=== PATIENT | male | born 1960 | race Hispanic/Latino ===

== ENCOUNTER → 2023-05-04 08:03 | Outpatient (CLI) | payer MEDICARE, OTHER, SELFPAY ==
[2023-05-04 08:57] LABS: Cholesterol 126 mg/dL (140-199); HDL Cholesterol 38 mg/dL (40-60); LDL Cholesterol Calculated 67 mg/dL (<100); Triglycerides 104 mg/dL (35-150)
[2023-05-04 09:32] LABS: Creatinine Urine Random 212.2 mg/dL
[2023-05-04 09:39] LABS: Microalbumi Creatinin Ratio Ur 4.7 ug/mg CR (<30)
[2023-05-04 09:52] LABS: Hemoglobin A1C% w Est Avg Glu 8.3 % (4.0-6.0)
== END ==
PROVIDERS: PCP Student in an Organized Health Care Education/Training Program; Referring Provider Student in an Organized Health Care Education/Training Program; Visit Provider Student in an Organized Health Care Education/Training Program
DX: E11.9 Type 2 diabetes mellitus without complications (principal)
CPT/HCPCS: 36415; 80061; 82043; 82570; 83036

== ENCOUNTER → 2023-06-06 10:47 | Outpatient (CLI) | payer MEDICARE, OTHER, SELFPAY ==
--- NOTE | 2023-06-06 10:49 | DI.CT.S_ITS ---
PROCEDURE: CT LUNG LOW DOSE SCREENING INDICATIONS: tobacco use disorder TECHNIQUE: Noncontrast 2.0-2.5 mm thick sections acquired from the pulmonary apices to the posterior costophrenic angles. 7 mm thick axial MIP, and 5 mm coronal and sagittal reformats were then acquired. A low radiation dose technique was utilized. COMPARISON: Outside Film, CT, CT LOW DOSE LUNG CA SCREENING, 01/29/2021, 8:57. FINDINGS: Image quality: Diagnostic, given the low radiation dose technique. Lungs and pleura: Moderate centrilobular emphysema and mild paraseptal emphysema. 2 millimeter calcified granuloma in the central right lower lobe (series 3, image 204). Focus of scarring in the posterior right lower lobe. Mediastinum: Heart size is normal. No pericardial effusion. No mediastinal adenopathy by size criteria. Thoracic aorta and central pulmonary arteries are normal in size. Esophagus is normal in caliber. Small hiatal hernia. Marked coronary artery calcifications for age. Bones and chest wall: No suspicious bony lesions. No vertebral body compression fractures. No axillary or supraclavicular adenopathy by size criteria. Thyroid gland is unremarkable. Diffuse idiopathic skeletal hyperostosis. Abdomen: Visualized upper abdomen solid organs and bowel loops appear normal in the absence of contrast. IMPRESSION: LUNG-RADS 2; continued annual follow-up if eligible. Marked coronary artery calcifications for age. Consider cardiology referral. Diffuse idiopathic skeletal hyperostosis. Small hiatal hernia. Dictated by: Pedro Daugehrty M.D. on 06/06/2023 at 11:56 Approved by: Pedro Daugherty M.D. on 06/06/2023 at 12:00
== END ==
PROVIDERS: PCP Student in an Organized Health Care Education/Training Program; Referring Provider Student in an Organized Health Care Education/Training Program; Visit Provider Student in an Organized Health Care Education/Training Program
DX: F17.210 Nicotine dependence, cigarettes, uncomplicated (principal); Z12.2 Encounter for screening for malignant neoplasm of respiratory organs; J43.2 Centrilobular emphysema; K44.9 Diaphragmatic hernia without obstruction or gangrene; I25.10 Atherosclerotic heart disease of native coronary artery without angina pectoris; M48.10 Ankylosing hyperostosis [Forestier], site unspecified
CPT/HCPCS: 71271

== ENCOUNTER → 2023-09-13 11:06 | Outpatient (CLI) | payer MEDICARE, OTHER, SELFPAY ==
[2023-09-13 12:38] LABS: Hemoglobin A1C% w Est Avg Glu 7.7 % (4.0-6.0)
[2023-09-13 13:02] LABS: Alanine Aminotransferase 24 IU/L (<50); Albumin 4.5 g/dL (3.5-5.0); Albumin Globulin Ratio 1.6 (1.0-2.8); Alkaline Phosphatase 59 U/L (38-126); Aspartate Aminotransferase 40 IU/L (17-59); BUN Creatinine Ratio 17.5 (6-22); Bilirubin Total 1.1 mg/dL (0.2-1.3); Blood Urea Nitrogen 20 mg/dL (9-20); Calcium 9.5 mg/dL (8.4-10.2); Carbon Dioxide 26 mmol/L (22-32); Chloride 106 mmol/L (98-107); Estimated Glomerular Filt Rate > 60 mL/min (>60); Globulin 2.9 g/dL (1.7-4.1); Glucose 170 mg/dL (80-110); HEMOLYSIS 16 (0-50); Potassium 4.4 mmol/L (3.4-5.1); Sodium 141 mmol/L (137-145); Total Protein 7.4 g/dL (6.3-8.2)
== END ==
LOC: LAB 11:07
PROVIDERS: PCP Student in an Organized Health Care Education/Training Program; Referring Provider Student in an Organized Health Care Education/Training Program; Visit Provider Student in an Organized Health Care Education/Training Program
DX: E11.9 Type 2 diabetes mellitus without complications (principal)
CPT/HCPCS: 36415; 80053; 83036

== ENCOUNTER → 2023-11-09 08:31 | Outpatient (CLI) | payer MEDICARE, OTHER, SELFPAY ==
--- NOTE | 2023-11-09 20:05 | DI.NM.S_ITS ---
DATE OF SERVICE: 11/09/2023 PROCEDURE: Pharmacological perfusion study. INDICATIONS: Left bundle branch block. RADIOPHARMACEUTICAL: 26.0 millicuries technetium-99m Myoview IV was injected at stress and 11.1 millicuries technetium-99m Myoview IV was injected at rest. CARDIAC STRESS: Patient underwent IV Lexiscan perfusion study under the supervision of an attending staff. The patient remained hemodynamically stable. Resting blood pressure 122/74. Baseline rhythm sinus with left bundle branch block. During stress no new convincing ischemic changes seen. The patient has intermittent frequent PVCs during Lexiscan injection. Minimal dyspnea. No chest discomfort. RAW DATA: Raw data there is increased subdiaphragmatic activity. Soft tissue shadow encroaching the inferior border of the heart. The patient's weight is 210 pounds. Resting LV ejection fraction 59 and stress LV ejection fraction 63% without any significant wall motion abnormalities. TID ratio 1.20. This is a pharmacological perfusion study. It is not significant. Resting end-diastolic volume 153 mL. Lung/heart ratio 0.33. MYOCARDIAL PERFUSION SCAN: Stress supine and resting supine images were compared. There appears to be predominantly fixed, large size, moderate to severely decreased perfusion of inferior wall extending into the inferior apex without any reversible ischemia. CONCLUSION: 1. No obvious reversible ischemia. 2. Predominantly fixed, large size, severely decreased perfusion of the inferior wall extending into the inferior apex and inferolateral wall. On raw images, significant soft tissue shadow is seen encroaching the inferior border of the heart as well as increased subdiaphragmatic activity. The patient's weight is 210 pounds. On gated study, inferior wall and inferolateral wall is moving well. Stress left ventricular ejection fraction 63%. There are no prone images to distinguish tissue attenuation artifact versus true infarction. However, preserved contractility, soft tissue shadow, weight suggest most likely this is a tissue attenuation artifact. Overall, low-risk study. Correlate clinically. Douglas Cowan - LOWELL/calli/babak doc#: [id number]/job#: [id number] dd: 11/09/2023 17:17:00 dt: 11/09/2023 19:52:00 DICTATING MD/COPIES TO: Bernie Owen MD COPIES MNE: GONSALO;
== END ==
LOC: NUCM 08:32
PROVIDERS: PCP Student in an Organized Health Care Education/Training Program; Referring Provider Internal Medicine Cardiovascular Disease; Visit Provider Internal Medicine Cardiovascular Disease
DX: I44.7 Left bundle-branch block, unspecified (principal); E11.9 Type 2 diabetes mellitus without complications; E78.5 Hyperlipidemia, unspecified; I10 Essential (primary) hypertension; Z79.4 Long term (current) use of insulin
CPT/HCPCS: 78452; 93017; A9502; J2785

== ENCOUNTER 2024-02-07 10:27 | Day surgery (SDC) | payer MEDICARE, OTHER, SELFPAY ==
[2024-02-07 10:54] VITALS: BP 131/74; PULSE 52; RESP 16; TEMP 36.4; O2SAT 98
--- NOTE | 2024-02-07 10:57 | PM.HP.1 ---
History of Present Illness History of Present Illness Date Patient Seen: 02/07/24 Time Patient Seen: 10:58 Chief complaint: Screening Colonoscopy Narrative: 63-year-old man here for screening colonoscopy. Normal colonoscopy at outside institution within the past 15 years. No family history of colon cancer. No abdominal concerns today. [facility] Medical History Osteoarthritis Sleep apnea Osteopenia Chronic back pain (~1984) Tinnitus (~1995) Hearing loss (~1995) Ankylosing spondylitis (~2009) Type 2 diabetes mellitus (~1997) Surgical History Anesthesia History of colonoscopy Family History Father Prostate cancer Mother Diabetes mellitus History of heart disease Brother Diabetes mellitus Grandfather Diabetes mellitus History of heart disease Social History Smoking Status: Current every day smoker Meds Home Medications and Allergies Home Medications Medication Instructions Recorded Confirmed Type atorvastatin 20 mg tablet (Lipitor) 20 mg PO DAILY #90 tabs 06/02/23 02/07/24 Rx blood sugar diagnostic (FreeStyle #50 ea 08/03/23 12/16/23 Rx Lite Strips) freestyle Laura 3 sensors #6 ea 08/03/23 12/16/23 Rx insulin glargine 100 unit/mL (3 30 unit (0.3 mL) SUBCUT BID #15 mL 08/03/23 02/07/24 Rx mL) subcutaneous pen (Lantus Solostar U-100 Insulin) metformin 1,000 mg tablet 1,000 mg PO BID #60 tabs 08/03/23 02/07/24 Rx albumin, human 5 % 5 % intravenous 25 g IV ONCE 09/19/23 02/07/24 History solution lisinopril 5 mg tablet 5 mg PO DAILY #90 tabs 09/19/23 02/07/24 Rx exenatide microspheres 2 mg/0.85 2 mg (0.85 mL) SUBCUT Q7D #3.4 mL 12/16/23 02/07/24 Rx mL subcutaneous auto-injector dulaglutide 1.5 mg/0.5 mL 1.5 mg SUBCUT WEEKLY 02/07/24 02/07/24 History subcutaneous pen injector (Trulicity) Allergies Allergy/AdvReac Type Severity Reaction Status Date / Time No Known Drug Allergies Allergy Verified 12/16/23 10:34 Exam Narrative Exam Narrative: General adult man alert oriented no acute distress Chest nonlabored respiration Extremities warm well perfused Assessment & Plan Assessment & Plan narrative: The patient requires colorectal screening and colonoscopy is recommended. Technical details were discussed. Risks, benefits, alternatives explained. Risks including but not limited to myocardial infarction, aspiration, bleeding, pain, missed lesion, incomplete examination, need for further radiographic studies, intestinal injury, and need for major abdominal surgery were discussed. All questions were answered to their satisfaction, and they are in agreement with this plan.
[2024-02-07] MEDS: LACTATED RINGERS 1,000 ML 42 ML IV (11:03)
--- NOTE | 2024-02-07 11:41 | P.OP.COLON_ITS ---
Operative Date/Time/Diagnoses Date of procedure: 02/07/24 Time of procedure: 11:42 Pre-op diagnosis: Colorectal screening Procedure & Clinicians Study performed: Screening colonoscopy Same procedure as scheduled: Yes Indications: Colorectal screening Surgeon: Yury Mendoza Procedure Notes Procedure in detail: The history and physical was performed/updated and the patient is ASA class is 2. The procedure was discussed in detail with the patient. Potential risks co mplications including infection, bleeding, missed diagnosis, perforation, need for surgery, and were explained. Their questions were answered and informed consent was obtained. Patient was brought to the procedure room and placed standard monitoring equipment. The patient's vital signs were monitored continuously throughout the entire procedure. Prior to starting time-out was performed. The patient was placed in the left lateral recumbent position. Procedural sedation was administered by anesthesia. Examination began with a thorough inspection of the perianal area there was no evidence of fissures, fistulae, external hemorrhoids or cutaneous malignancy. The colonoscopy scope was then placed into the anal canal and was advanced to the cecum, which was identified by the ileocecal valve, the appendiceal orifice and the confluence of the taenia. The scope was then slowly withdrawn examining colon thoroughly in all directions, irrigating it of any residual stool. The scope was retroflexed within the rectum The patient tolerated the procedure well. They will be discharged once criteria are met. The prep was of good/excellent quality. The withdrawl time was 7 minutes. FINDINGS * Unremarkable colonoscopy. No masses polyps or inflammation * Internal hemorrhoids Specimen(s): none sent Impression: Normal colonoscopy Post-procedure Recommendations: Colonoscopy in 10 years Disposition: same day surgery
[2024-02-07 11:42] VITALS: BP 96/53; PULSE 66; RESP 24; TEMP 36.5; O2SAT 96
[2024-02-07 11:52] VITALS: BP 91/53; PULSE 70; RESP 15
[2024-02-07 11:58] VITALS: BP 123/72; PULSE 70; RESP 15; O2SAT 95
== END 2024-02-07 12:19 | disposition home or self-care (01) ==
PROVIDERS: PCP Student in an Organized Health Care Education/Training Program; Referring Provider Surgery; Visit Provider Surgery
PROC: 0DJD8ZZ Inspection of Lower Intestinal Tract, Via Natural or Artificial Opening Endoscopic (ICD-10-PCS; CPT 45378; principal; 2024-02-07 11:45)
DX: Z12.11 Encounter for screening for malignant neoplasm of colon (principal); K64.8 Other hemorrhoids
CPT/HCPCS: G0121; J2704

== ENCOUNTER → 2024-06-21 14:44 | Outpatient (CLI) | payer MEDICARE, OTHER, SELFPAY ==
--- NOTE | 2024-06-21 14:45 | DI.CT.S_ITS ---
PROCEDURE: CT LUNG LOW DOSE SCREENING INDICATIONS: Current every day [employer] smoker TECHNIQUE: Noncontrast 2.0-2.5 mm thick sections acquired from the pulmonary apices to the posterior costophrenic angles. 7 mm thick axial MIP, and 5 mm coronal and sagittal reformats were then acquired. For radiation dose reduction, the following was used: automated exposure control, adjustment of mA and/or kV according to patient size. COMPARISON: [facility], CT, CT LUNG LOW DOSE SCREENING, 06/06/2023, 10:53. FINDINGS: Image quality: Diagnostic. Lower Neck: No enlarged lymph nodes. Thyroid: No thyroid nodules which require sonographic follow up, per consensus guidelines. Axillae: No enlarged lymph nodes. Chest Wall: Unremarkable. Bones: Unremarkable. Lungs and Pleura: No pneumothorax or pleural effusions. No consolidation or suspicious nodules. moderate pulmonary emphysema Heart: Heart size is normal. No pericardial effusion. Thoracic Vessels: The aorta and pulmonary arteries demonstrate normal size. Mediastinum and Edel: No enlarged lymph nodes. Esophagus: No wall thickening. No hiatal hernia. Upper Abdomen: Visualized upper abdomen solid organs and bowel loops appear normal. IMPRESSION: No suspicious pulmonary nodules. Moderate pulmonary emphysema. LUNG-RADS 1; continued annual screening, if eligible. Approved by: Chip Mcdowell M.D. on 06/22/2024 at 13:38
== END ==
PROVIDERS: PCP Student in an Organized Health Care Education/Training Program; Referring Provider Student in an Organized Health Care Education/Training Program; Visit Provider Student in an Organized Health Care Education/Training Program
DX: J43.9 Emphysema, unspecified (principal); F17.210 Nicotine dependence, cigarettes, uncomplicated
CPT/HCPCS: 71271

== ENCOUNTER → 2024-07-17 12:46 | Outpatient (CLI) | payer MEDICARE, OTHER, SELFPAY ==
[2024-07-17 13:44] LABS: Add Manual Diff / Slide Review NO; Basophils Absolute Auto 0 /uL (0-100); Basophils Percent Auto 0.3 % (0-2); Eosinophils Absolute Auto 100 /uL (0-450); Eosinophils Percent Auto 1.1 % (2-4); Hematocrit 43.9 % (41-53); Hemoglobin 14.7 g/dL (13.5-17.5); Lymphocytes Absolute Auto 2600 /uL (1100-4500); Lymphocytes Percent Auto 25.6 % (25-40); Mean Corpuscular HGB Conc 33.5 % (30-36); Mean Corpuscular Hemoglobin 31.3 PG (26-34); Mean Corpuscular Volume 93.5 fL (80-100); Monocytes Absolute Auto 400 /uL (0-900); Monocytes Percent Auto 4.3 % (3-14); Neutrophils Absolute Auto 6900 /uL (1500-7000); Neutrophils Percent Auto 68.7 % (50-75); Platelet Count 189 X10^3/uL (150-400); Red Cell Distribution Width 13.3 % (11.6-14.8)
[2024-07-17 14:20] LABS: Creatinine Urine Random 79.73 mg/dL
[2024-07-17 14:25] LABS: Microalbumin Urine Random < 0.6 mg/dL (0-1.6)
[2024-07-17 21:21] LABS: Alanine Aminotransferase 23 IU/L (<50); Albumin 4.5 g/dL (3.5-5.0); Albumin Globulin Ratio 1.9 (1.0-2.8); Alkaline Phosphatase 62 U/L (38-126); Aspartate Aminotransferase 27 IU/L (17-59); BUN Creatinine Ratio 16.3 (6-22); Blood Urea Nitrogen 17 mg/dL (9-20); Carbon Dioxide 25 mmol/L (22-32); Chloride 105 mmol/L (98-107); Cholesterol 94 mg/dL (140-199); Estimated Glomerular Filt Rate > 60 mL/min (>60); Globulin 2.4 g/dL (1.7-4.1); Glucose 172 mg/dL (80-110); HDL Cholesterol 41 mg/dL (40-60); HEMOLYSIS < 15 (0-50); LDL Cholesterol Calculated 33 mg/dL (<100); Potassium 4.2 mmol/L (3.4-5.1); Sodium 141 mmol/L (137-145); Total Protein 6.9 g/dL (6.3-8.2); Triglycerides 100 mg/dL (35-150)
[2024-07-17 21:36] LABS: Hemoglobin A1C% w Est Avg Glu 7.1 % (4.0-6.0)
[2024-07-17 22:15] LABS: Prostate Specific Antigen 0.249 ng/mL (0.10-4.00)
== END ==
PROVIDERS: PCP Student in an Organized Health Care Education/Training Program; Referring Provider Student in an Organized Health Care Education/Training Program; Visit Provider Student in an Organized Health Care Education/Training Program
DX: E11.9 Type 2 diabetes mellitus without complications (principal); Z13.6 Encounter for screening for cardiovascular disorders; Z12.5 Encounter for screening for malignant neoplasm of prostate
CPT/HCPCS: 36415; 80053; 80061; 82043; 82570; 83036; 84153; 85025

== ENCOUNTER → 2025-05-20 10:55 | Outpatient (CLI) | payer MEDICARE, OTHER, SELFPAY ==
[2025-05-20 13:57] LABS: Hematocrit 41.9 % (41-53); Hemoglobin 14.0 g/dL (13.5-17.5); Mean Corpuscular HGB Conc 33.4 % (30-36); Mean Corpuscular Hemoglobin 31.1 PG (26-34); Mean Corpuscular Volume 93.1 fL (80-100); Platelet Count 177 X10^3/uL (150-400)
[2025-05-20 14:07] LABS: Alanine Aminotransferase 20 IU/L (<50); Albumin 4.4 g/dL (3.5-5.0); Albumin Globulin Ratio 1.5 (1.0-2.8); Alkaline Phosphatase 42 U/L (38-126); Blood Urea Nitrogen 16 mg/dL (9-20); Calcium 9.3 mg/dL (8.4-10.2); Carbon Dioxide 27 mmol/L (22-32); Chloride 105 mmol/L (98-107); Cholesterol 77 mg/dL (140-199); Estimated Glomerular Filt Rate > 60 mL/min (>60); Globulin 2.9 g/dL (1.7-4.1); Glucose 80 mg/dL (70-99); HDL Cholesterol 37 mg/dL (40-60); Potassium 4.7 mmol/L (3.4-5.1); Sodium 140 mmol/L (137-145); Total Protein 7.3 g/dL (6.3-8.2); Triglycerides 55 mg/dL (35-150)
[2025-05-20 14:10] LABS: Hemoglobin A1C% w Est Avg Glu 7.1 % (4.0-6.0)
[2025-05-20 14:13] LABS: HEMOLYSIS 82 (0-50)
[2025-05-20 14:49] LABS: Ferritin 50 ng/mL (18-464)
[2025-05-20 15:54] LABS: Basophils Percent Manual 2.0 % (0-1); Eosinophils Percent Manual 1.0 % (2-4); Lymphocytes Percent Manual 19.0 % (25-45); Monocytes Percent Manual 6.0 % (2-11); Neutrophils Absolute Manual 6624 /uL (3000-5900); Segmented Neutrophils Percent 72.0 % (38-70); Total Cells Counted 100
[2025-05-20 15:55] LABS: RBC Morphology Normal Morphology
[2025-05-20 19:49] LABS: HEMOLYSIS < 15 (0-50); TSH w/ Reflex to FT4 1.68 uIU/mL (0.47-4.68)
[2025-05-20 21:47] LABS: Iron 118 ug/dL (49-181)
[2025-05-20 22:02] LABS: Percent Iron Saturation 33 % (20-50); Total Iron Binding Capacity 362 ug/dL (261-462); Transferrin 279 mg/dL (206-381)
== END ==
PROVIDERS: PCP Student in an Organized Health Care Education/Training Program; Referring Provider Student in an Organized Health Care Education/Training Program; Visit Provider Student in an Organized Health Care Education/Training Program
DX: E11.9 Type 2 diabetes mellitus without complications (principal); R53.83 Other fatigue
CPT/HCPCS: 36415; 80053; 80061; 82043; 82570; 82652; 82728; 83036; 83540; 83550; 84443; 85025